=== PATIENT | male | born 1985 | race Caucasian/White ===

== ENCOUNTER 2022-04-20 03:14 | Emergency (ER) | payer SELFPAY ==
[~2022-04-20] VITALS: Ht 165.1 cm; Wt 77.1 kg
[2022-04-20 03:20] VITALS: BP_SYST 132
--- NOTE | 2022-04-20 03:24 | NUR ---
Pt BIB [facility] for OK to [facility]. Pt reports pain from bug bite on right leg. BP 132/95 MD made aware. Hx of cardiac stent.
--- NOTE | 2022-04-20 03:26 | NUR ---
Patient to ER bed 05 to gown for evaluation. Side rails up. Report given to Mansi HAGAN.
--- NOTE | 2022-04-20 03:47 | NUR ---
Patient given written and verbal discharge instructions and verbalizes understanding. ER MD discussed with patient the results and treatment provided. Patient in stable condition. ID arm band removed. Rx of BACTRIM given. Pt d/c to PD
[2022-04-20 03:49] VITALS: BP_SYST 135
== END 2022-04-20 03:47 ==
LOC: SED 03:14
DX: L03.317 Cellulitis of buttock (principal); L02.31 Cutaneous abscess of buttock; R22.41 Localized swelling, mass and lump, right lower limb; Z79.899 Other long term (current) drug therapy
CPT/HCPCS: 99283